=== PATIENT | male | born 2000 | race Caucasian/White ===

== ENCOUNTER 2023-10-12 13:28 | Emergency (ER) | payer BC, SELFPAY ==
[2023-10-12 13:33] VITALS: BP 148/86
--- NOTE | 2023-10-12 13:58 | ED.GENMED ---
History of Present Illness
General
Chief Complaint: Chest Pain
Source: patient
Exam Limitations: none
Time Seen by Provider: 10/12/23 13:56
Nursing documentation reviewed up to this point in time: agreed with
Travel History
Have you had any contact with someone who has COVID-19?: No
Do you have any symptoms of coronavirus? Fever > 100 degrees, chills, cough, shortness of breath, sore throat, loss of taste or smell, muscle aches, or headache?: No
History of Present Illness
History of Present Illness:
23-year-old male with no significant past medical history states 2 nights ago around 11 PM he felt tightness in his left mid chest area that came and went, yesterday it was not there until about 5 AM then it would come and go again. He has not lost
sleep due to this pain. Today he states the pain would come 'randomly for seconds.' Seems to be gradually improving. He denies shortness of breath, sweating, nausea or vomiting, feeling dizzy. He does admit to started working out , the
day the pain started. He was doing push-ups and lifting weights and the pain started about 2 hours later. He does some lifting at work, he delivers car parts. He's taken nothing for the pain. He had 'the sniffles' a few weeks ago, no significant
recent illness.
Past History
Past History
ED Past Medical History: None
Social History
Tobacco: Vaping
Alcohol: None
Personal: Single
Living: alone
Employment: Employed
Review of Systems
Review of Systems
Allergies reviewed?: Yes
All Other Systems: ROS reviewed and negative except as documented in HPI and ROS
Constitutional: Denies fever
EENT: Denies sore throat
Respiratory: Denies cough or trouble breathing
Cardiac: Reports chest pain; Denies diaphoresis or palpitations
ABD/GI: Denies abdominal pain, nausea, vomiting or diarrhea
Musculoskeletal: Reports other (chest wall pain); Denies neck pain or back pain
Skin: Reports no symptoms
Neurological: Reports no symptoms
Phy Exam
Physical Exam
Physical Exam:
GENERAL: No acute distress. A&Ox3.
CONSTITUTIONAL: Afebrile.
EYES: PERRL, conjunctivae normal
ENMT: moist mucus membranes, Pharynx nl
RESPIRATORY: Regular respirations, nonlabored, lungs clear.
CARDIOVASCULAR: Regular rate and rhythm, no murmurs, no rubs.
GI: Soft, nontender, normal BS
MUSCULOSKELETAL: Denies pain presently. Unable to elicit pain with palpation. Moves with ease. Well perfused.
SKIN: Warm, dry, pink
PSYCH: Normal mood and affect. Well kept, interactive and appropriate
NEUROLOGIC: Awake, alert and oriented. No focal neurological deficits
Scores
Heart Score for Chest Pain Patients
STEMI patient?: Not applicable
Course
Orders/Labs/Results
Orders:
Orders
10/12/23 13:36
Electrocardiogram (*1) Urgent
Reason for Study: Chest Pain
EKG- Treatment ONCE
10/12/23 14:04
CR Chest - 2 Views Urgent
Comment:
Reason For Exam: intermittent left chest pain
Vital Signs
Initial and Last Documented VS:
Initial Vital Signs
Temp Pulse Resp BP Pulse Ox
98.3 F 79 18 148/86 100
10/12/23 13:33 10/12/23 13:33 10/12/23 13:33 10/12/23 13:33 10/12/23 13:33
Last Documented Vital Signs
Temp Pulse Resp BP Pulse Ox
98.3 F 80 16 125/65 99
10/12/23 13:33 10/12/23 14:18 10/12/23 14:18 10/12/23 14:18 10/12/23 14:18
MDM/Problems Addressed
Differential Diagnosis Includes:
Sternocostal strain, costochondritis.
MDM/Problems Addressed:
23-year-old male with no significant past medical history states 2 nights ago around 11 PM he felt tightness in his left mid chest area that came and went, yesterday it was not there until about 5 AM then it would come and go again. He has not lost
sleep due to this pain. Today he states the pain would come 'randomly for seconds.' Seems to be gradually improving. He denies shortness of breath, sweating, nausea or vomiting, feeling dizzy. He does admit to started working out , the
day the pain started. He was doing push-ups and lifting weights and the pain started about 2 hours later. He does some lifting at work, he delivers car parts. He's taken nothing for the pain. He had 'the sniffles' a few weeks ago, no significant
recent illness.
EKG NSR
10/12/2023 1453 PM
Chest x-ray: NAD
Patient reassured this is most likely musculoskeletal pain.
*EKG
EKG Intrepretation Date: 10/12/23
Interpretation: normal
Rate: normal
Rhythm: sinus
Canon: normal axis
Interval: normal interval
QRS Pattern: normal QRS
Ischemia: no ischemia
*Critical Care Note
Total Time (30-74mins, 75-104mins- exclusive of procedures): Not Applicable
ED Attending Note
-
Portions of this chart may have been created with voice recognition software.� Occasional wrong word or��sound alike� substitutions may have occurred due to the inherent limitations of voice recognition software.
Discharge Plan
Departure
Patient Disposition: Home (Routine Discharge)
Date of Disposition: 10/12/23
Time of Disposition: 14:53
Patient with high blood pressure during this ER visit?: No
Condition: Good
Discharge Problem:
Left-sided chest wall pain
Instructions: Costochondritis, Chest Pain That Is Not Caused by the Heart (DC)
Prescriptions:
No Action
ondansetron 4 MG tablet,disintegrating
4 mg PO Q8 PRN (Reason: vomiting) Qty: 10 0RF
Referrals:
Enrique Basurto MD [Family Provider] - As needed
Activity Restrictions/Additional Instructions:
As we discussed, your chest wall pain is most likely from you are starting to workout.
Your chest x-ray is normal, your EKG is normal
There is no indication of anything worrisome
Ibuprofen 600 mg, with food, every 6 hours as needed for pain.
You may notice pain and soreness in different areas of your body as you are starting to workout
Interventions
Interventions:
*Risk Screen - Suicide Last Done: 10/12/23 14:15
*General Assessment Last Done: 10/12/23 14:15
*Neglect/Abuse Screening Last Done: 10/12/23 14:15
ED- Fall Risk Assessment Last Done: 10/12/23 14:15
*ED COVID-19 Vaccine History Last Done: 10/12/23 14:15
*Nursing Disposition Last Done: 10/12/23 14:59
ED- Cardiac Assessment Last Done: 10/12/23 14:18
Discharge Date and Time
Discharge Date/Time: 10/12/23 14:59
--- NOTE | 2023-10-12 13:59 | EDRN ---
Mckinley TRUJILLO in room w/ pt at this time.
[2023-10-12 14:18] VITALS: BP 125/65; BMI 25.2
== END 2023-10-12 14:59 | disposition home or self-care (01) ==
LOC: EMR 13:28
PROVIDERS: EMERGENCY PHYSICIAN Emergency Medicine; FAMILY PHYSICIAN Family Medicine
DX: R07.89 Other chest pain (principal); F17.290 Nicotine dependence, other tobacco product, uncomplicated
CPT/HCPCS: 99284; 71046; 93005